=== PATIENT | female | born 1975 | race Two or more races ===

== ENCOUNTER 2017-02-27 20:04 | Emergency (ER) | payer OTHER ==
[2017-02-27] MEDS ORDERED: SYNTHROID75 MCG PO (20:38)
== END 2017-02-27 21:30 | disposition home or self-care (01) ==
LOC: SED 20:04
DX: S91.332A Puncture wound without foreign body, left foot, initial encounter (principal); Z23 Encounter for immunization; Z79.899 Other long term (current) drug therapy; Z88.0 Allergy status to penicillin; W45.0XXA Nail entering through skin, initial encounter; Y92.89 Other specified places as the place of occurrence of the external cause
CPT/HCPCS: 90471; 90715; 99283